=== PATIENT | female | born 1960 | race Caucasian/White ===

== ENCOUNTER 2016-07-24 10:52 | Emergency (ER) | payer OTHER ==
[~2016-07-24] VITALS: Ht 152.4 cm; Wt 62.0 kg
[~2016-07-24 10:52] MED LIST: TRAM50 PO
[2016-07-24 10:56] VITALS: BP 154/81; PULSE 68; RESP 16; TEMP 98; O2SAT 99
--- NOTE | 2016-07-24 11:17 | PD ---
HPI Chief Complaint: GI Complaint Time Seen by Provider: 11:14 Travel History International Travel<30 days: No Contact w/Intl Traveler<30days: No Traveled to known affect area: No History of Present Illness HPI This is a 56 year old female who presents to the emergency department with months of blood from her rectum. She says initially it was painful but it's become painless. She says she has blood from her rectum almost every day and lately she started to have some blood clots come from her rectum. She also is reporting some right sided abdominal pain that radiates to her back, intermittent. She says she's been increasingly lightheaded and dizzy. She's also been getting headaches and feels confused. She is worried that she has cancer. Several years ago she had a CT scan at [facility] which had 2 masses that she never had followed up. She has no insurance and no money. She says she called patient assistance here but never received a phone call back. She says she feels like this is all getting worse and she came to the emergency department today because she has to get this checked out. PFSH Past Medical History Hx Anticoagulant Therapy: No Asthma: Yes Cardiovascular Problems: No COPD: Yes Diminished Hearing: No Diverticulitis: Yes Gastrointestinal Disorders: Yes (DIVERTICULITIS/COLITIS) Genitourinary: Yes Kidney Stones: Yes Musculoskeletal: No Neurologic: No Reproductive: No Respiratory: Yes (COPD) Sleep Apnea: No Tetanus Vaccination: Unknown Influenza Vaccination: No ?: Not Menopausal: Yes Past Surgical History Other Surgery: No Social History Alcohol Use: Yes (Soc.) Tobacco Use: Yes (1 PPD) Substance Use: No Allergies-Medications (Allergen,Severity, Reaction): Coded Allergies: No Known Allergies (Verified , 07/24/16) Reported Meds & Prescriptions Reported Meds & Active Scripts Active Ultram (Tramadol HCl) 50 Mg Tab 50 Mg PO Q6 PRN Review of Systems Except as stated in HPI: all other systems reviewed are Neg Physical Exam Narrative GENERAL: Anxious appearing SKIN: Warm and dry. HEAD: Atraumatic. Normocephalic. EYES: Pupils equal and round. No injection or drainage. ENT: Moist mucous membranes NECK: Trachea midline. CARDIOVASCULAR: Regular rate and rhythm. No murmur appreciated. RESPIRATORY: Clear to auscultation. Breath sounds equal bilaterally. GASTROINTESTINAL: Abdomen soft, non-tender, nondistended. External hemorrhoids visualized on rectal exam. Stool is grossly normal in appearance. MUSCULOSKELETAL: No obvious deformities. NEUROLOGICAL: Awake and alert. No obvious cranial nerve deficits. Moving all extremities. PSYCHIATRIC: Tearful, anxious with some pressured speech Data Data Last Documented VS Vital Signs Date Time Temp Pulse Resp B/P Pulse Ox O2 Delivery O2 Flow Rate FiO2 07/24/16 10:56 98.0 68 16 154/81 99 Orders Complete Blood Count With Diff (07/24/16 11:14) Basic Metabolic Panel (Bmp) (07/24/16 11:14) Labs Laboratory Tests Test 07/24/16 11:25 White Blood Count 8.3 TH/MM3 Red Blood Count 4.81 MIL/MM3 Hemoglobin 14.6 GM/DL Hematocrit 43.2 % Mean Corpuscular Volume 89.8 FL Mean Corpuscular Hemoglobin 30.4 PG Mean Corpuscular Hemoglobin 33.9 % Concent Red Cell Distribution Width 12.2 % Platelet Count 241 TH/MM3 Mean Platelet Volume 8.1 FL Neutrophils (%) (Auto) 67.0 % Lymphocytes (%) (Auto) 22.9 % Monocytes (%) (Auto) 7.1 % Eosinophils (%) (Auto) 2.2 % Basophils (%) (Auto) 0.8 % Neutrophils # (Auto) 5.5 TH/MM3 Lymphocytes # (Auto) 1.9 TH/MM3 Monocytes # (Auto) 0.6 TH/MM3 Eosinophils # (Auto) 0.2 TH/MM3 Basophils # (Auto) 0.1 TH/MM3 CBC Comment DIFF FINAL Differential Comment Sodium Level 141 MEQ/L Potassium Level 3.9 MEQ/L Chloride Level 106 MEQ/L Carbon Dioxide Level 23.3 MEQ/L Anion Gap 12 MEQ/L Blood Urea Nitrogen 14 MG/DL Creatinine 0.72 MG/DL Estimat Glomerular Filtration 83 ML/MIN Rate Random Glucose 107 MG/DL Calcium Level 9.4 MG/DL MDM Medical Decision Making Medical Screen Exam Complete: Yes Emergency Medical Condition: Yes Medical Record Reviewed: Yes (patient has had 3 CT scans in the past 3 years, one demonstrated a renal mass but 2 subsequent CTs have not remarked on the mass. She has had a CT demonstrating pancolitis in the past.) Interpretation(s) Afebrile, no tachycardia no Anemia Differential Diagnosis Upper GI bleed, lower GI bleed, colitis, inflammatory bowel disease, hemorrhoids Narrative Course This is a 56-year-old female who presents to the emergency department with blood from her rectum. The patient is very anxious and tearful because she is concerned she has cancer. She was told in the past that she had a mass on her kidney and she is concerned because she never followed it up. I looked at the renal mass and on 2 subsequent CTs they've not commented on it. This doesn't mean that it doesn't need to be followed up but I reassured her that it's unlikely to be rapidly progressing. I did explain to the patient that I can't rule out colon cancer in the emergency department. She does have external hemorrhoids on exam, and she is Hemoccult negative. Her hemoglobin and hematocrit are normal. I don't think she has any criteria for admission at this time. I recommended that she follow up with patient assistance and I placed a mandatory referral for GI. [facility] Point of Care Internal Pos. & Neg. Controls: Passed Fecal Specimen Occult Blood: Negative Diagnosis Primary Impression: Bright red blood per rectum Patient Instructions: General Instructions Additional Instructions: If you develop severe or worsening abdominal pain, fever>100.4, persistent vomiting or inability to eat or drink return to the emergency department immediately. It's very important that you try to establish a primary care physician and follow-up with gastroenterology as you need a thorough evaluation to rule out colon cancer. Med/Other Pt SpecificInfo: No Change to Meds Disposition: 01 DISCHARGE HOME Condition: Stable Cierra Bynum MD Jul 24, 2016 11:17
[2016-07-24 11:34] LABS: AUTOMATED NEUTROPHIL # 5.5 TH/MM3 (1.8-7.7); BASOPHIL # 0.1 TH/MM3 (0-0.2); BASOPHIL % 0.8 % (0.0-2.0); EOSINOPHIL # 0.2 TH/MM3 (0-0.4); EOSINOPHIL % 2.2 % (0.0-4.0); HEMATOCRIT 43.2 % (35.0-46.0); HEMO FLAGS DIFF FINAL; LYMPH % 22.9 % (9.0-44.0); LYMPHOCYTE # 1.9 TH/MM3 (1.0-4.8); MEAN CELL VOLUME 89.8 FL (80.0-100.0); MEAN CORPUSCULAR HEMOGLOBIN 30.4 PG (27.0-34.0); MEAN CORPUSCULAR HGB CONC 33.9 % (32.0-36.0); MONO % 7.1 % (0.0-8.0); PLATELET COUNT 241 TH/MM3 (150-450); RED BLOOD COUNT 4.81 MIL/MM3 (4.00-5.30); RED CELL DISTRIBUTION WIDTH 12.2 % (11.6-17.2); WHITE BLOOD COUNT 8.3 TH/MM3 (4.0-11.0)
[2016-07-24 11:41] LABS: POTASSIUM 3.9 MEQ/L (3.5-5.1)
[2016-07-24 11:44] LABS: BICARBONATE 23.3 MEQ/L (21.0-32.0)
[2016-08-08] MEDS ORDERED: RANI150C PO (09:45)
[2016-08-08] MEDS ORDERED: CARB6.5S5 RIGHT EAR (09:50)
[2016-12-23] MEDS ORDERED: RANI150C PO (08:58)
[2016-12-23] MEDS ORDERED: METH125I2 IM (09:07)
[2016-12-23] MEDS ORDERED: ALBU0.08 NEB (09:11)
[2016-12-24] MEDS ORDERED: RANI150T PO (09:06)
== END 2016-07-24 12:36 | disposition home or self-care (01) ==
LOC: PHED 10:52
DX: K62.5 Hemorrhage of anus and rectum (principal)
CPT/HCPCS: 80048; 85025; 99284

== ENCOUNTER → 2017-01-08 | Outpatient (CLI) | payer OTHER ==
[~2017-01-08] MED LIST changes: +ALBU0.08 NEB; +LOVA40TA PO; +RANI150T PO; -TRAM50 PO
[2017-01-08 10:50] LABS: BASOPHIL # 0.1 TH/MM3 (0-0.2); BASOPHIL % 0.8 % (0.0-2.0); EOSINOPHIL # 0.2 TH/MM3 (0-0.4); EOSINOPHIL % 2.1 % (0.0-4.0); HEMATOCRIT 42.2 % (35.0-46.0); HEMO FLAGS DIFF FINAL; LYMPH % 25.9 % (9.0-44.0); LYMPHOCYTE # 2.4 TH/MM3 (1.0-4.8); MEAN CELL VOLUME 91.2 FL (80.0-100.0); MEAN CORPUSCULAR HEMOGLOBIN 31.2 PG (27.0-34.0); MEAN CORPUSCULAR HGB CONC 34.2 % (32.0-36.0); MONO % 7.8 % (0.0-8.0); NEUT % 63.4 % (16.0-70.0); PLATELET COUNT 261 TH/MM3 (150-450); RED BLOOD COUNT 4.62 MIL/MM3 (4.00-5.30); RED CELL DISTRIBUTION WIDTH 13.4 % (11.6-17.2); WHITE BLOOD COUNT 9.4 TH/MM3 (4.0-11.0)
[2017-01-08 11:19] LABS: ANION GAP 7 MEQ/L (5-15); AST (GOT) 34 U/L (15-37); BICARBONATE 25.6 MEQ/L (21.0-32.0); BLOOD UREA NITROGEN 11 MG/DL (7-18); CHLORIDE 108 MEQ/L (98-107); GLOMERULAR FILTRATION RATE 75 ML/MIN (>89); POTASSIUM 4.1 MEQ/L (3.5-5.1); SODIUM (NA) 141 MEQ/L (136-145)
[2017-01-08 11:21] LABS: GLUCOSE,FASTING 103 MG/DL (74-99)
[2017-01-08 11:35] LABS: ALKALINE PHOSPHATASE 112 U/L (45-117); ALT (GPT) 50 U/L (10-53); HDL CHOLESTEROL 40.2 MG/DL (40.0-60.0); TOTAL BILIRUBIN ADULT 0.2 MG/DL (0.2-1.0)
== END ==
LOC: CLAB 10:25
PROVIDERS: ATTEND Family Medicine
DX: K62.5 Hemorrhage of anus and rectum (principal); J44.1 Chronic obstructive pulmonary disease with (acute) exacerbation; Z85.528 Personal history of other malignant neoplasm of kidney; Z72.0 Tobacco use
CPT/HCPCS: 36415; 80053; 80061; 84443; 85025

== ENCOUNTER 2017-09-08 10:53 | Emergency (ER) | payer SELFPAY ==
[~2017-09-08] VITALS: Ht 152.4 cm; Wt 63.5 kg
[~2017-09-08 10:53] MED LIST changes: +LOVA20TA PO; -LOVA40TA PO
[2017-09-08 10:55] VITALS: BP 220/98; PULSE 68; RESP 16; TEMP 98.3; O2SAT 98
[2017-09-08 11:13] VITALS: BP 200/97
--- NOTE | 2017-09-08 11:36 | PD ---
HPI Chief Complaint: Pain: Acute or Chronic Time Seen by Provider: 11:15 Travel History International Travel<30 days: No Contact w/Intl Traveler<30days: No Traveled to known affect area: No History of Present Illness HPI This 57-year-old female says she is having pain in both of her arms for the past month. The pain is quite severe. She occasionally gets pain radiating down to her fingers. She occasionally gets tingling in the fingers. She has no history of neck pain. She does have a history of COPD and she continues to smoke. She says that the muscles in the shoulders have been sore. She feels like her arms or weakness. The discomfort is quite a bit worse when she lifts her arms up. She feels like her arms are swollen. She has been taking up to 800 mg of ibuprofen without relief PFSH Past Medical History Hx Anticoagulant Therapy: No Asthma: Yes Cardiovascular Problems: No COPD: Yes Diminished Hearing: No Diverticulitis: Yes Gastrointestinal Disorders: Yes (DIVERTICULITIS/COLITIS) Genitourinary: Yes Kidney Stones: Yes Musculoskeletal: No Neurologic: No Reproductive: No Respiratory: Yes (COPD) Sleep Apnea: No Tetanus Vaccination: > 5 Years Influenza Vaccination: No ?: Not Menopausal: Yes Past Surgical History Surgical History: No Previous Surgery Other Surgery: No Social History Alcohol Use: Yes (Soc.) Tobacco Use: Yes (1 PPD) Substance Use: No Allergies-Medications (Allergen,Severity, Reaction): Coded Allergies: No Known Allergies (Verified Adverse Reaction, Unknown, 09/08/17) Reported Meds & Prescriptions Reported Meds & Active Scripts Active Review of Systems General / Constitutional: No: Fever, Chills Eyes: No: Diploplia, Blurred Vision HENT: No: Headaches, Vertigo Cardiovascular: No: Chest Pain or Discomfort, Palpitations Respiratory: No: Cough, Shortness of Breath Gastrointestinal: No: Vomiting Genitourinary: No: Urgency, Frequency Musculoskeletal: Positive: Myalgias, Arthralgias, Weakness, No: Pain Skin: No Rash, No Itching Neurologic: No: Weakness Psychiatric: No: Anxiety Endocrine: No: Cold Intolerance Hematologic/Lymphatic: No: Easy Bruising Physical Exam Narrative GENERAL: Well-developed female SKIN: Focused skin assessment warm/dry. HEAD: Atraumatic. Normocephalic. EYES: Pupils equal and round. No scleral icterus. No injection or drainage. ENT: No nasal bleeding or discharge. Mucous membranes pink and moist. NECK: Trachea midline. No JVD. There is no tenderness to palpation of the neck CARDIOVASCULAR: Regular rate and rhythm. No murmur appreciated. RESPIRATORY: No accessory muscle use. Clear to auscultation. Breath sounds equal bilaterally. GASTROINTESTINAL: Abdomen soft, non-tender, nondistended. Hepatic and splenic margins not palpable. MUSCULOSKELETAL: No obvious deformities. No clubbing. No cyanosis. No edema. Batter Scaler are equal. There is some tenderness of both shoulders. There is no deformity NEUROLOGICAL: Awake and alert. No obvious cranial nerve deficits. Motor grossly within normal limits. Normal speech. PSYCHIATRIC: Appropriate mood and affect; insight and judgment normal. Data Data Last Documented VS Vital Signs Date Time Temp Pulse Resp B/P (MAP) Pulse Ox O2 Delivery O2 Flow Rate FiO2 09/08/17 11:13 200/97 (131) 09/08/17 10:55 98.3 68 16 98 Orders Orders Complete Blood Count With Diff (09/08/17 11:27) Comprehensive Metabolic Panel (09/08/17 11:27) Creatine Kinase (Cpk) (09/08/17 11:27) Westergren Sedimentation Rate (09/08/17 11:27) Chest, Single Ap (09/08/17 11:27) Ct Cerv Spine W/O Contrast (09/08/17 11:27) Labs Laboratory Tests Test 09/08/17 12:20 White Blood Count 8.2 TH/MM3 Red Blood Count 4.71 MIL/MM3 Hemoglobin 14.0 GM/DL Hematocrit 42.7 % Mean Corpuscular Volume 90.6 FL Mean Corpuscular Hemoglobin 29.8 PG Mean Corpuscular Hemoglobin Concent 32.9 % Red Cell Distribution Width 12.5 % Platelet Count 260 TH/MM3 Mean Platelet Volume 8.1 FL Neutrophils (%) (Auto) 64.3 % Lymphocytes (%) (Auto) 27.6 % Monocytes (%) (Auto) 4.8 % Eosinophils (%) (Auto) 2.6 % Basophils (%) (Auto) 0.7 % Neutrophils # (Auto) 5.2 TH/MM3 Lymphocytes # (Auto) 2.3 TH/MM3 Monocytes # (Auto) 0.4 TH/MM3 Eosinophils # (Auto) 0.2 TH/MM3 Basophils # (Auto) 0.1 TH/MM3 CBC Comment DIFF FINAL Differential Comment Erythrocyte Sedimentation Rate 1 mm/hr Blood Urea Nitrogen 14 MG/DL Creatinine 0.67 MG/DL Random Glucose 100 MG/DL Total Protein 7.9 GM/DL Albumin 4.0 GM/DL Calcium Level 8.7 MG/DL Alkaline Phosphatase 94 U/L Aspartate Amino Transf (AST/SGOT) 20 U/L Alanine Aminotransferase (ALT/SGPT) 38 U/L Total Bilirubin 0.4 MG/DL Sodium Level 140 MEQ/L Potassium Level 4.2 MEQ/L Chloride Level 106 MEQ/L Carbon Dioxide Level 24.4 MEQ/L Anion Gap 10 MEQ/L Estimat Glomerular Filtration Rate 90 ML/MIN Total Creatine Kinase 90 U/L [place] Medical Decision Making Medical Screen Exam Complete: Yes Emergency Medical Condition: Yes Medical Record Reviewed: Yes Differential Diagnosis Differential includes radiculopathy, arthritis, myalgias Narrative Course Sed rate is normal. CT of the neck does not show evidence of radiculopathy. Other lab work is unremarkable. She has been taking ibuprofen without relief. I will prescribe some Flexeril. She is to follow-up with her own medical doctor Diagnosis Primary Impression: Arthritis of shoulder Scripts Cyclobenzaprine (Flexeril) 10 Mg Tab 10 MG PO TID for Muscle Spasm, #30 TAB 0 Refills Prov: Kian Yip MD 09/08/17 Disposition: DISCHARGE HOME Condition: Stable Kian Yip MD Sep 08, 2017 11:35
--- NOTE | 2017-09-08 11:58 | RADRPT ---
EXAM DATE/TIME: 09/08/2017 11:41 [facility] COMPARISON: CHEST SINGLE AP, September 18, 2015, 11:21. INDICATIONS : Chest and bilateral arm pain MEDICAL HISTORY : Chronic obstructive pulmonary disease. Asthma SURGICAL HISTORY : None. ENCOUNTER: Initial ACUITY: 1 month PAIN SCORE: 6/10 LOCATION: chest FINDINGS: Portable AP view of the chest demonstrates a normal-sized cardiac silhouette. No effusion, consolidat ion, or pneumothorax is visualized. The bones and soft tissues demonstrate no acute abnormality. EKG lines overlie the patient. CONCLUSION: No acute cardiopulmonary abnormality is identified. Saeid Antonio MD on September 08, 2017 at 11:57 Board Certified Radiologist. This report was verified electronically.
[2017-09-08 12:28] LABS: AUTOMATED NEUTROPHIL # 5.2 TH/MM3 (1.8-7.7); BASOPHIL # 0.1 TH/MM3 (0-0.2); BASOPHIL % 0.7 % (0.0-2.0); EOSINOPHIL # 0.2 TH/MM3 (0-0.4); EOSINOPHIL % 2.6 % (0.0-4.0); HEMATOCRIT 42.7 % (35.0-46.0); LYMPH % 27.6 % (9.0-44.0); LYMPHOCYTE # 2.3 TH/MM3 (1.0-4.8); MEAN CELL VOLUME 90.6 FL (80.0-100.0); MEAN CORPUSCULAR HEMOGLOBIN 29.8 PG (27.0-34.0); MEAN CORPUSCULAR HGB CONC 32.9 % (32.0-36.0); MEAN PLATELET VOLUME 8.1 FL (7.0-11.0); MONO % 4.8 % (0.0-8.0); MONOCYTE # 0.4 TH/MM3 (0-0.9); NEUT % 64.3 % (16.0-70.0); PLATELET COUNT 260 TH/MM3 (150-450); RED BLOOD COUNT 4.71 MIL/MM3 (4.00-5.30); RED CELL DISTRIBUTION WIDTH 12.5 % (11.6-17.2); WHITE BLOOD COUNT 8.2 TH/MM3 (4.0-11.0)
--- NOTE | 2017-09-08 12:34 | RADRPT ---
EXAM DATE/TIME: 09/08/2017 11:51 [facility] COMPARISON: No previous studies available for comparison. INDICATIONS : Bilateral upper extremity burning sensation for one month. RADIATION DOSE: 26.67 CTDIvol (mGy) MEDICAL HISTORY : Chronic obstructive pulmonary disease. Diverticulitis. Renal calculi. SURGICAL HISTORY : None. ENCOUNTER: Initial ACUITY: 1 month PAIN SCALE: 0/10 LOCATION: Bilateral neck TECHNIQUE: Volumetric scanning of the cervical spine was performed. Multiplanar reconstructions in the sagittal, coronal and oblique axial planes were performed. Using automated exposure control and adjustment o f the mA and/or kV according to patient size, radiation dose was kept as low as reasonably achievable to obtain optimal diagnostic quality images. DICOM format image data is available electronically f or review and comparison. FINDINGS: There is slight reversal of normal cervical lordosis. Minimal retrolisthesis C5 relative to C6.. No f racture is identified. There is no evidence of bony canal or foraminal compromise. Mild degenerative changes are present, most significantly at C5-6 with small ventral and dorsal osteophytes present. Th ere is no evidence of paraspinal hematoma. CONCLUSION: No evidence of acute bony process in the cervical spine Saeid Avila MD on September 08, 2017 at 12:27 Board Certified Radiologist. This report was verified electronically.
[2017-09-08 13:02] LABS: CHLORIDE 106 MEQ/L (98-107); SODIUM (NA) 140 MEQ/L (136-145)
[2017-09-08 13:05] LABS: BICARBONATE 24.4 MEQ/L (21.0-32.0); CALCIUM 8.7 MG/DL (8.5-10.1); GLUCOSE,RANDOM 100 MG/DL (74-106)
[2017-09-08 13:06] LABS: BLOOD UREA NITROGEN 14 MG/DL (7-18)
[2017-09-08 13:08] LABS: ALT (GPT) 38 U/L (10-53); AST (GOT) 20 U/L (15-37)
[2017-09-08 13:09] LABS: CREATININE 0.67 MG/DL (0.50-1.00); GLOMERULAR FILTRATION RATE 90 ML/MIN (>89)
[2017-09-08 13:10] LABS: TOTAL BILIRUBIN ADULT 0.4 MG/DL (0.2-1.0); TOTAL PROTEIN 7.9 GM/DL (6.4-8.2)
[2017-09-08 13:11] LABS: ALKALINE PHOSPHATASE 94 U/L (45-117)
[2017-09-08] MEDS ORDERED: CYCL10TA PO (14:01)
[2017-09-08 14:24] VITALS: BP 159/81
== END 2017-09-08 14:35 | disposition home or self-care (01) ==
LOC: PHED 10:53
DX: M19.019 Primary osteoarthritis, unspecified shoulder (principal); J44.9 Chronic obstructive pulmonary disease, unspecified; F17.210 Nicotine dependence, cigarettes, uncomplicated
CPT/HCPCS: 71045; 72125; 80053; 82550; 85025; 85652; 99285